=== PATIENT | male | born 1980 | race American Indian/Alaskan Native ===

== ENCOUNTER 2017-01-02 12:18 | Inpatient (IN) | payer OTHER ==
[2017-01-02 15:06] LABS: Basophils % (Auto) 0.2 % (0.0-1.8); Eosinophils % (Auto) 0.3 % (0.0-4.3); Hemoglobin 14.1 gm/dl (11.8-15.2); Mean Corpuscular HGB Conc 34 % (32-34); Mean Corpuscular Hemoglobin 33 pg (28-32); Mean Corpuscular Volume 98 fl (84-94); Platelet Count 105 K/mm3 (140-440); Red Blood Count 4.31 M/mm3 (3.65-5.03); Red Cell Distribution Width 14.2 % (13.2-15.2); White Blood Count 8.7 K/mm3 (4.5-11.0)
[2017-01-02 15:12] LABS: Alanine Aminotransferase 42 units/L (7-56); Albumin 4.7 g/dL (3.9-5); Albumin/Globulin Ratio 1.1 %; Alkaline Phosphatase 91 units/L (35-129); Anion Gap 27 mmol/L; BUN/Creatinine Ratio 18.57; Blood Urea Nitrogen 13 mg/dL (9-20); Calcium 9.9 mg/dL (8.4-10.2); Carbon Dioxide 24 mmol/L (22-30); Chloride 87.8 mmol/L (98-107); Glucose 101 mg/dL (75-100); Lipase 176 units/L (13-60); Potassium 4.4 mmol/L (3.6-5.0); Sodium 134 mmol/L (137-145); Total Protein 8.8 g/dL (6.3-8.2)
--- NOTE | 2017-01-02 15:39 | Emergency Department Report ---
Entered by ARIELLA PAREDES, acting as scribe for ASHLEY FALK PA. Chief Complaint: Abdominal Pain Stated Complaint: ABDOMINAL PAIN Time Seen by Provider: 01/02/17 14:15 - HPI History of Present Illness: 36 y/o male with PMHx of pancreatitis and EtOH abuse, presents to the ED c/o diffuse abdominal pain beginning three days ago. Associated symptoms of nausea, vomiting, and decreased appetite, but he denies dysuria, diarrhea, and constipation. Patient has had approximately 6 episodes of vomiting since onset. Patient requests detox from EtOH, states that he consumed EtOH (liquor and beer ) prior to the onset of the symptoms. No other complaints. - ROS Review of Systems: ABD: positive for abdominal pain, nausea, constipation, decreased appetite, and vomiting. Negative for diarrhea. : denies dysuria All other systems reviewed and negative. - Exam Vital Signs: Vital Signs 01/02/17 12:27 Temperature 98.5 F Pulse Rate 105 H Respiratory 18 Rate Blood Pressure 141/100 O2 Sat by Pulse 99 Oximetry Physical Exam: Constitutional: Non toxic appearing, NAD. Cardiovascular: Normal rate and rhythm with normal S1/S2 sounds. Respiratory: No respiratory distress. Lung sounds clear to auscultation bilaterally. Abdomen: Abdomen is non-distended, soft with no tenderness to palpation in all quadrants. Hyperactive bowel sounds noted. MSE screening note: Focused history and physical exam performed. Due to findings the following was ordered: ED Medical Decision Making - Medical Decision Making Alert and oriented x3. Labs ordered. No acute distress, patient is stable. ED Disposition for MSE Condition: Stable Referrals: PRIMARY CARE,MD [Primary Care Provider] - 3-5 Days This documentation as recorded by the scribe,ARIELLA PAREDES,accurately reflects the service I personally performed and the decisions made by DEYA elias OYINLOLA A, PA.
[2017-01-03] MEDS ORDERED: ZOFRAN IV ONE (00:05)
[2017-01-03] MEDS ORDERED: NACL 0.9% 1000 ML 2,000 ML IV ONE (00:05)
[2017-01-03] MEDS ORDERED: MORPHINE IV ONE (00:05)
[2017-01-03] MEDS ORDERED: VALIUM IV ONE (00:05)
--- NOTE | 2017-01-03 00:06 | Emergency Department Report ---
ED General Adult HPI - General Chief complaint: Abdominal Pain Stated complaint: ABDOMINAL PAIN Time Seen by Provider: 01/02/17 14:27 Source: patient, RN notes reviewed Mode of arrival: Ambulatory Limitations: No Limitations - History of Present Illness Initial comments: This is a 36-year-old male. He is previously unknown to me. He has a past medical history of alcohol abuse, consumes daily, and pancreatitis. The patient presents to the ER complaint diffuse abdominal pain. It is "all over." It increases with palpation, and decreases with rest. Patient reports that his pain today similar to prior episodes of pancreatitis. There is no chest pain or shortness of breath. There is no hematemesis or bright red blood per rectum. There is no testicular pain. The patient denies irritative and obstructive urinary symptoms. The patient last consumed alcohol earlier on today. He is not homicidal or suicidal. He feels like he is withdrawing. -: Gradual Location: abdomen Quality: aching Consistency: intermittent Improves with: rest Worsens with: movement Associated Symptoms: loss of appetite, malaise, nausea/vomiting. denies: confusion, chest pain - Related Data Home Medications Medication Instructions Recorded Confirmed Last Taken Unobtainable 01/03/17 01/03/17 Unknown Allergies Allergy/AdvReac Type Severity Reaction Status Date / Time No Known Allergies Allergy Unverified 01/02/17 12:31 ED Review of Systems ROS: Stated complaint: ABDOMINAL PAIN Other details as noted in HPI Constitutional: malaise Eyes: denies: vision change ENT: denies: hearing loss Respiratory: denies: cough Cardiovascular: denies: chest pain Gastrointestinal: abdominal pain Genitourinary: denies: testicular pain Neurological: denies: headache Psychiatric: anxiety. denies: homicidal thoughts, suicidal thoughts ED Past Medical Hx - Past Medical History Previous Medical History?: Yes Additional medical history: ETOH abuse, pancreatitis - Surgical History Past Surgical History?: No - Social History Smoking Status: Current Every Day Smoker Substance Use Type: Alcohol - Medications Home Medications: Home Medications Medication Instructions Recorded Confirmed Last Taken Type Unobtainable 01/03/17 01/03/17 Unknown History ED Physical Exam - General Limitations: No Limitations General appearance: alert, in no apparent distress - Head Head exam: Present: atraumatic, normocephalic - Eye Eye exam: Present: normal appearance, EOMI. Absent: nystagmus - ENT ENT exam: Present: normal exam, normal orophraynx, mucous membranes moist, normal external ear exam - Neck Neck exam: Present: normal inspection, full ROM. Absent: tenderness, meningismus - Respiratory Respiratory exam: Present: normal lung sounds bilaterally. Absent: respiratory distress, wheezes, rales, rhonchi, stridor, chest wall tenderness - Cardiovascular Cardiovascular Exam: Present: normal rhythm, tachycardia, normal heart sounds. Absent: systolic murmur, diastolic murmur, rubs, gallop - GI/Abdominal GI/Abdominal exam: Present: soft, tenderness, normal bowel sounds. Absent: distended, guarding, rebound, rigid, pulsatile mass - Rectal Rectal exam: Present: deferred - Extremities Exam Extremities exam: Present: normal inspection, full ROM, normal capillary refill. Absent: tenderness, pedal edema, joint swelling, calf tenderness - Back Exam Back exam: Present: normal inspection, full ROM. Absent: tenderness, CVA tenderness (R), CVA tenderness (L), muscle spasm, paraspinal tenderness, vertebral tenderness - Neurological Exam Neurological exam: Present: alert, oriented X3, other (Extraocular movements intact. Tongue midline. No facial droop. Facial sensation intact to light touch in the V1, V2, V3 distribution bilaterally. 5 and 5 strength in 4 extremities.. Sensation is intact to light touch in 4 extremities.). Absent: motor sensory deficit - Psychiatric Psychiatric exam: Present: normal affect, normal mood. Absent: homicidal ideation, suicidal ideation - Skin Skin exam: Present: warm, dry, intact, normal color. Absent: rash ED Course Vital Signs 01/02/17 01/02/17 01/02/17 12:27 23:43 23:44 Temperature 98.5 F Pulse Rate 105 H Respiratory 18 Rate Blood Pressure 141/100 O2 Sat by Pulse 99 100 99 Oximetry 01/02/17 01/02/17 01/02/17 23:45 23:46 23:48 Temperature Pulse Rate Respiratory Rate Blood Pressure 57/18 57/18 57/18 O2 Sat by Pulse 99 99 99 Oximetry 01/02/17 01/02/17 01/02/17 23:50 23:52 23:54 Temperature Pulse Rate Respiratory 18 Rate Blood Pressure 57/18 57/18 57/18 O2 Sat by Pulse 98 99 98 Oximetry 01/02/17 01/02/17 01/03/17 23:56 23:58 00:00 Temperature Pulse Rate Respiratory Rate Blood Pressure 57/18 57/18 160/121 O2 Sat by Pulse 100 99 98 Oximetry 01/03/17 01/03/17 01/03/17 00:02 00:04 00:06 Temperature Pulse Rate Respiratory Rate Blood Pressure 160/121 160/121 160/121 O2 Sat by Pulse 98 99 99 Oximetry 01/03/17 01/03/17 01/03/17 00:08 00:10 00:12 Temperature Pulse Rate Respiratory Rate Blood Pressure 160/121 160/121 160/121 O2 Sat by Pulse 99 99 99 Oximetry 01/03/17 01/03/17 01/03/17 00:14 00:16 00:18 Temperature Pulse Rate Respiratory Rate Blood Pressure 160/121 160/121 160/121 O2 Sat by Pulse 99 99 98 Oximetry 01/03/17 01/03/17 01/03/17 00:20 00:47 02:12 Temperature Pulse Rate Respiratory 18 Rate Blood Pressure 160/121 160/112 O2 Sat by Pulse 99 98 Oximetry 01/03/17 01/03/17 01/03/17 02:14 02:16 02:18 Temperature Pulse Rate Respiratory Rate Blood Pressure 160/112 160/112 160/112 O2 Sat by Pulse 98 98 98 Oximetry 01/03/17 01/03/17 01/03/17 02:20 02:22 02:24 Temperature Pulse Rate Respiratory Rate Blood Pressure 160/112 160/112 160/112 O2 Sat by Pulse 98 97 99 Oximetry 01/03/17 01/03/17 01/03/17 02:26 02:28 02:30 Temperature Pulse Rate Respiratory Rate Blood Pressure 160/112 160/112 160/112 O2 Sat by Pulse 97 97 98 Oximetry 01/03/17 01/03/17 01/03/17 02:32 02:34 02:36 Temperature Pulse Rate Respiratory Rate Blood Pressure 160/112 160/112 160/112 O2 Sat by Pulse 99 98 96 Oximetry 01/03/17 01/03/17 01/03/17 02:38 02:40 02:42 Temperature Pulse Rate Respiratory Rate Blood Pressure 160/112 160/112 160/112 O2 Sat by Pulse 98 97 98 Oximetry 01/03/17 01/03/17 01/03/17 02:44 02:46 02:47 Temperature Pulse Rate Respiratory Rate Blood Pressure 160/112 160/112 160/112 O2 Sat by Pulse 98 98 99 Oximetry 01/03/17 01/03/17 01/03/17 02:48 03:09 03:10 Temperature Pulse Rate Respiratory Rate Blood Pressure 160/112 160/112 160/112 O2 Sat by Pulse 97 97 97 Oximetry 01/03/17 01/03/17 01/03/17 03:12 03:14 03:16 Temperature Pulse Rate Respiratory Rate Blood Pressure 160/112 160/112 160/112 O2 Sat by Pulse 98 97 96 Oximetry 01/03/17 01/03/17 01/03/17 03:18 03:20 03:22 Temperature Pulse Rate Respiratory Rate Blood Pressure 160/112 160/112 160/112 O2 Sat by Pulse 96 97 97 Oximetry 01/03/17 01/03/17 01/03/17 03:24 03:26 03:28 Temperature Pulse Rate Respiratory Rate Blood Pressure 160/112 160/112 160/112 O2 Sat by Pulse 97 97 98 Oximetry 01/03/17 01/03/17 01/03/17 03:30 03:32 03:34 Temperature Pulse Rate Respiratory Rate Blood Pressure 160/112 160/112 160/112 O2 Sat by Pulse 96 96 97 Oximetry 01/03/17 01/03/17 01/03/17 03:36 03:38 03:40 Temperature Pulse Rate Respiratory Rate Blood Pressure 160/112 160/112 160/112 O2 Sat by Pulse 97 97 97 Oximetry 01/03/17 01/03/17 01/03/17 03:42 03:44 03:46 Temperature Pulse Rate Respiratory Rate Blood Pressure 160/112 160/112 160/112 O2 Sat by Pulse 96 97 98 Oximetry 01/03/17 01/03/17 01/03/17 03:48 03:50 03:52 Temperature Pulse Rate Respiratory Rate Blood Pressure 160/112 160/112 160/112 O2 Sat by Pulse 97 97 97 Oximetry 01/03/17 01/03/17 01/03/17 03:54 03:56 03:58 Temperature Pulse Rate Respiratory Rate Blood Pressure 160/112 160/112 160/112 O2 Sat by Pulse 97 97 98 Oximetry 01/03/17 01/03/17 01/03/17 04:00 04:02 04:03 Temperature Pulse Rate Respiratory Rate Blood Pressure 160/112 160/112 166/95 O2 Sat by Pulse 94 95 99 Oximetry 01/03/17 01/03/17 04:04 04:13 Temperature 98.7 F Pulse Rate 84 Respiratory 16 Rate Blood Pressure 166/95 O2 Sat by Pulse 98 Oximetry - Reevaluation(s) Reevaluation #1: 01/03/17 01:04 Differential diagnosis: Alcohol dependence, alcohol intoxication, GERD, gastritis, pancreatitis, perforated viscus, alcohol withdrawal Assessment and plan: 36-year-old male with diffuse abdominal pain, tongue fasciculations, bilateral upper extremity tremulousness, elevated lipase level, most likely consistent with pancreatitis. He is not homicidal or suicidal, and does not require 1013 at this time. He will be given pain medication, nausea medication, and started on a CIWA protocol. CT scan of the abdomen and pelvis is pending. Reevaluation #2: 01/03/17 03:13 CT scan suggests ileus. Patient raw stock drier tender. He will be admitted for alcohol withdrawal, ileus versus early pancreatitis. The Hospital physician, Dr. Marcial, accepts the patient ED Medical Decision Making - Lab Data Result diagrams: 01/02/17 14:37 01/02/17 14:37 Critical care attestation.: If time is entered above; I have spent that time in minutes in the direct care of this critically ill patient, excluding procedure time. ED Disposition Clinical Impression: Alcohol withdrawal, Pancreatitis Disposition: [id number] OP ADMIT IP TO THIS HOSP Is pt being admited?: Yes Condition: Good
[2017-01-03] MEDS ORDERED: NACL ONE (00:43)
--- NOTE | 2017-01-03 01:44 | Cat Scan Report ---
FINAL REPORT PROCEDURE: CT ABDOMEN PELVIS W CON TECHNIQUE: Computerized axial tomography of the abdomen and pelvis was performed after the IV injection of iodinated nonionic contrast. HISTORY: pancreatitis MID ABD PAIN COMPARISON: No prior studies are available for comparison. FINDINGS: Visualized lower thorax: No significant abnormality. Liver: The liver size is normal. The liver is fatty infiltrated.. Spleen: Normal size and attenuation. Gallbladder and biliary system: Normal. Pancreas: Normal. Adrenals: Normal. Kidneys: Both kidneys have normal size. No hydronephrosis. No renal stones or masses.. GI tract: There is some thickening the wall of the stomach involving the pylorus. Gastritis is suspected. Further evaluation with endoscopy may be appropriate. There are multiple loops of slightly dilated fluid and gas-filled small bowel, an ileus is suspected. No obstruction is seen. The cecum, appendix region and colon are normal.. Lymph nodes and mesentery: Normal. Vasculature: Normal. Bladder: Normal. Reproductive organs: Normal. Peritoneum: No free fluid. Musculoskeletal structures: No significant abnormality. Other: None. IMPRESSION: Moderate gastric wall thickening of the pylorus of the stomach, gastritis is possible. Further differentiation with endoscopy may be appropriate. Mild small bowel ileus is suspected as described. No obstruction is seen. Fatty infiltration of the liver.
--- NOTE | 2017-01-03 03:10 | Admit Criteria Form ---
Admission Criteria Documentation: ABDOMINAL PAIN Clinical Indications for Admission to Inpatient Care (Place 'X' for any and all applicable criteria): Admission is indicated for ANY ONE of the following(1)(2)(3)(4)(5): [ X]I. Inpatient admission required rather than observation care (Also use Abdominal Pain: Observation Care, as appropriate) because of ANY ONE of the following: [ ]a) Severe pain requiring acute inpatient management [ X]b) Identification of etiology/finding that requires inpatient care (eg, aortic dissection, free air) [ ]c) Absent bowel sounds with complete ileus(6) [ ]d) Suspected toxic megacolon [ ]e) Severe electrolyte abnormalities requiring inpatient care [ ]f) High fever or infection requiring inpatient admission as indicated by ANY ONE of following(7)(8): [ ] i) Appropriate outpatient or observational care antimicrobial treatment unavailable, not effective, or not feasible [ ] ii) Documented bacteremia [ ] iii) Temperature > 104.9 degrees F (oral) [ ] iv) T >103.1 F (oral) or < 96.8 F(rectal) that does not respond to all emergency treatment measures [ ]g) Signs of intestinal obstruction [B] [ ]h) Hemodynamic instability [ ]i) IV fluid to replace significant ongoing losses (greater than 3 L/m2 per day) (12)(13) [ ]j) Percutaneous or open drainage (eg, abscess, biliary tract ) procedures [ ]k) Parenteral nutrition regimen that must be implemented on inpatient basis [ ]l) Other condition,treatment or monitoring requiring inpatient admission. [ ]II. Peritoneal signs present [ ]III. Surgery needed that cannot be performed on an ambulatory basis. [ ]IV. Evaluation requires patient to not eat or drink for extended period ( eg, more than 24 hours). [ ]V. Contraindications and/or Inappropriate clinical situations for Observational Care in patients with abdominal pain, when ANY ONE of the following is required: [ ]a) Thorough evaluation is required to prevent catastrophic events due to delays in diagnosing (e.g.Mesenteric ischemia) 1,3 [ ]b) Patient with severe pathology or with chronic symptoms unlikely to improve in the ED stay (3) [ ]. General contraindications and/or Inappropriate clinical situations for Observational Care in patients with abdominal pain, when ANY ONE of the following is required: [ ]a) Prediction of prolongation of LOS based on ANY ONE of the following may be considered as a contraindication for observational care 2, 3, 4, 5, 6, 7, 8, 9, 10, 11 [ ]i) Age > 65 yrs. [ ]ii) Patient arriving by ambulance [ ]iii) Patient with high acuity [ ]iv) Patient requiring vital sign monitoring [ ]v) Patient on IV medication [ ]b) Systolic blood pressures 180mmHg 3,12 [ ]c) Patient with altered mental status including delirium and other alteration of consciousness, (3) [ ]d) Patient whose discharge disposition will be to a long-term home or rehabilitation home should not be managed in Emergency Department Observation Unit. CMS rule requires 3 days hospital stay before such placement.3,13 [ ]e) Patient with failure to thrive due to broad array of etiologies 3,16,17 [ ]f) Inability to ambulate 3,14 Extended stay beyond goal length of stay may be needed for(2)(3): [ ]a) Persistent abdominal pain with suspected intra-abdominal process [ ]b) Diagnosed condition requiring continued stay (e.g., pancreatitis, complicated diverticulitis) [ ]c) Surgery (e.g., colectomy) The original [employer] content created by [employer] has been revised. The portions of the content which have been revised are identified through the use of italic text or in bold, and [facility] has neither reviewed nor approved the modified material.All other unmodified content is copyright [employer]. Please see references footnoted in the original [employer] edition 2016 Admission Criteria Met: Yes
[2017-01-03] MEDS ORDERED: ZOFRAN IV PRN ×2 (03:33→07:35)
[2017-01-03] MEDS ORDERED: DULCOLAX PR PRN (03:33)
[2017-01-03] MEDS ORDERED: MILK OF MAGNESIA PO PRN (03:33)
[2017-01-03] MEDS ORDERED: TYLENOL PO PRN (03:33)
--- NOTE | 2017-01-03 03:42 | History and Physical Report ---
History of Present Illness Date of examination: 01/03/17 History of present illness: 36-year-old man history of hypertension, alcohol indued pancreatitis comes emergency room with complaints of epigastric pain that started today. He describes the pain as abdominal pain, intensity 8/10, no radiation, relieved with IV morphine given in the emergency room. He is a heavy drinker, last drink was yesterday morning. Patient denies chest pain, palpitation, shortness of breath, cough, hematochezia, dysuria, frequency, focal weakness, dysarthria, fever chills, polydipsia polyuria, hot or cold intolerance, easy bruisability, or rash or bleeding from mucosal membrane, rhinorrhea, epistaxis, earache, tinnitus, blurry vision, eye discharge, anxiety, depression. Other review of systems negative PAST SURGICAL HISTORY: None SOCIAL HISTORY: Smoked one and a half packs a day, heavy drinker, no drugs FAMILY HISTORY: Hypertension Medications and Allergies Allergies Allergy/AdvReac Type Severity Reaction Status Date / Time No Known Allergies Allergy Unverified 01/02/17 12:31 Home Medications Medication Instructions Recorded Confirmed Last Taken Type Unobtainable 01/03/17 01/03/17 Unknown History Active Meds: Active Medications Acetaminophen (Tylenol) 650 mg PO Q4H PRN PRN Reason: Pain MILD(1-3)/Fever >100.5/PERAZA Bisacodyl (Dulcolax) 10 mg TN QDAY PRN PRN Reason: Constipation unrelieved by MOM Enoxaparin Sodium (Lovenox) 40 mg SUB-Q QDAY [facility] Sodium Chloride (Nacl 0.9% 1000 Ml) 1,000 mls @ 100 mls/hr IV DIRECT NIKA Lorazepam (Ativan) 2 mg IV Q1HR PRN PRN Reason: CIWA-Ar 8-15 Magnesium Hydroxide (Milk Of Magnesia) 30 ml PO Q4H PRN PRN Reason: Constipation Morphine Sulfate (Morphine) 2 mg IV Q4H PRN PRN Reason: Pain, Moderate (4-6) Ondansetron HCl (Zofran) 4 mg IV Q8H PRN PRN Reason: N/V unrelieved by Reglan Exam - Physical Exam Narrative exam: Gen. appearance: Patient lying in bed, no apparent distress HEENT: Normocephalic, atraumatic, pupils equally round and reactive to light, extraocular movement intact, and no sclericterus,. No JVD or thyromegaly or nodule,neck supple, no carotid bruit ,mucous membranes moist, no exudate or erythema Heart: S1, S2, regular rate and rhythm Lungs: Clear to auscultation bilaterally, breathing comfortable Abdomen: Positive bowel sounds, tender in epigastric area, nondistended, no organomegaly Extremity: No edema, cyanosis, clubbing, tremors Skin: No rash, nodules, warm, dry Neuro: Oriented 3, cranial nerves II-12 intact, speech is fluent, motor and sensory intact - Constitutional Vitals: Temp Pulse Resp BP Pulse Ox 98.5 F 105 H 18 160/121 99 01/02/17 12:27 01/02/17 12:27 01/03/17 00:47 01/03/17 00:20 01/03/17 00:20 Results - Labs CBC & Chem 7: 01/04/17 05:59 01/04/17 05:59 Labs: Abnormal lab results 01/02/17 01/02/17 Range/Units 14:37 14:37 MCV 98 H (84-94) fl MCH 33 H (28-32) pg Plt Count 105 L (140-440) K/mm3 [place] % (Auto) 9.5 H (0.0-7.3) % Seg Neutrophils % 73.1 H (40.0-70.0) % Sodium 134 L (137-145) mmol/L Chloride 87.8 L (98-107) mmol/L Creatinine 0.7 L (0.8-1.5) mg/dL Glucose 101 H (75-100) mg/dL AST 41 H (5-40) units/L Total Protein 8.8 H (6.3-8.2) g/dL Lipase 176 H (13-60) units/L - Imaging and Cardiology CT scan - abdomen: report reviewed CT scan - pelvis: report reviewed Assessment and Plan pancreatitis, acute on chronic, Alcohol induced Alcohol withdrawal Thrombocytopenia Hypertension Admits medicine Start IV fluids, bowel rest, IV morphine Start CIWA protocol with IV Ativan DVT prophylaxis with SCD
[2017-01-03] MEDS ORDERED: NACL 0.9% 1000 ML 1,000 ML IV SCH (04:00)
[2017-01-03] MEDS: MORPHINE IV PRN ×2 (05:21→10:07)
[2017-01-03] MEDS ORDERED: NORMODYNE IV PRN (07:34)
--- NOTE | 2017-01-03 07:38 | Event Note ---
Date: 01/03/[address] Marcial Problem list -Acute pancreatitis -CTAP w/ shows gastritis, sb ileus, fatty liver; npo -Accelerated hypertension: changed nss to half normal, ordered labetalolol iv prn -thrombocytopenia, most likely etoh related -mild hyponatremia, dehydration most likely -dvt prophylaxis: scd only due to fatty liver
[2017-01-03] MEDS: LOPRESSOR PO SCH ×3 (07:55→22:27)
[2017-01-03] MEDS: NACL 0.45% 1000 ML 1,000 ML IV SCH ×2 (08:09→22:32)
[2017-01-03] MEDS: APRESOLINE IV PRN ×2 (08:15→18:52)
[2017-01-03] MEDS ORDERED: LOVENOX SUB-Q SCH (10:00)
[2017-01-03] MEDS: ATIVAN IV PRN ×5 (11:20→22:28)
[2017-01-03] MEDS ORDERED: ATIVAN IV PRN ×2 (12:18)
[2017-01-03] MEDS ORDERED: HALDOL IM PRN (12:18)
[2017-01-04] MEDS: ATIVAN IV PRN ×2 (04:48→15:01)
[2017-01-04 06:40] LABS: Basophils % (Auto) 0.4 % (0.0-1.8); Hematocrit 42.6 % (35.5-45.6); Hemoglobin 14.1 gm/dl (11.8-15.2); Mean Corpuscular HGB Conc 33 % (32-34); Mean Corpuscular Hemoglobin 32 pg (28-32); Mean Corpuscular Volume 96 fl (84-94); Red Blood Count 4.43 M/mm3 (3.65-5.03); Red Cell Distribution Width 13.9 % (13.2-15.2); White Blood Count 6.2 K/mm3 (4.5-11.0)
[2017-01-04 06:47] LABS: Platelet Count 84 K/mm3 (140-440)
[2017-01-04 06:58] LABS: Anion Gap 27 mmol/L; BUN/Creatinine Ratio 17.14; Blood Urea Nitrogen 12 mg/dL (9-20); Calcium 9.3 mg/dL (8.4-10.2); Carbon Dioxide 20 mmol/L (22-30); Glucose 82 mg/dL (75-100); Potassium 3.9 mmol/L (3.6-5.0); Sodium 132 mmol/L (137-145)
--- NOTE | 2017-01-04 10:33 | Progress Note ---
Assessment and Plan Assessment and plan: Patient is a 36-year-old man with history of hypertension, tobacco dependency and alcohol abuse who presents with epigastric pains and admitted for acute pancreatitis -Acute ETOH related pancreatitis: abd pain resolved, start diet, iv narcotics -Alcoholic DTs: ciwa protocol, restraints renewed -Acute toxic metabolic encephalopathy due to alcohol -CTAP w/ shows gastritis, sb ileus, fatty liver: good bowel sounds, start diet -Accelerated hypertension: changed nss to half normal, ordered labetalolol iv prn -thrombocytopenia, most likely etoh related -mild hyponatremia, dehydration most likely -dvt prophylaxis: scd only due to fatty liver thrombocytopenia History Interval history: Patient seen and examined. Follow up on abdominal pain. Overnight eventful. Patient went into DTs with acute confusion and delirium. IM Haldol was given which improved his symptoms and he denies abd pains and asking for food. No cp, sob, n/v or severe headaches. Imaging, old records, testing, labs, nursing notes reviewed. Hospitalist Physical - Physical exam Narrative exam: GEN: WDWN, NAD, AWAKE, ALERT, ORIENTATED x 3 HEENT: NCAT, PERRL, EOMI, OP CLEAR NECK: SUPPLE, NO THYROMEGALY, NO JVD, NO LAD CVS: RRR, NORMAL S1S2 LUNGS/CHEST: CTA B, NORMAL CHEST EXPANSION B, GOOD AIR ENTRY B ABD: SOFT, NTND, GBS, NO REBOUND OR GUARDING EXT/SKIN: NO SIGNIFICANT EDEMA OR RASH MSK: FROM X 4 EXTREMITIES NEURO: CN 2-12 GROSSLY INTACT, NO FOCAL DEFICITS except fine intention tremor PSY: Anxious - Constitutional Vitals: Temp Pulse Resp BP Pulse Ox 99 F 94 H 18 141/111 999 H 01/04/17 08:50 01/04/17 08:50 01/04/17 08:50 01/04/17 08:50 01/04/17 08:50 Results - Labs CBC & Chem 7: 01/04/17 05:59 01/04/17 05:59 Labs: Laboratory Last Values WBC 6.2 K/mm3 (4.5-11.0) 01/04/17 05:59 RBC 4.43 M/mm3 (3.65-5.03) 01/04/17 05:59 Hgb 14.1 gm/dl (11.8-15.2) 01/04/17 05:59 Hct 42.6 % (35.5-45.6) 01/04/17 05:59 MCV 96 fl (84-94) H 01/04/17 05:59 MCH 32 pg (28-32) 01/04/17 05:59 MCHC 33 % (32-34) 01/04/17 05:59 RDW 13.9 % (13.2-15.2) 01/04/17 05:59 Plt Count 84 K/mm3 (140-440) L 01/04/17 05:59 Lymph % (Auto) 20.6 % (13.4-35.0) 01/04/17 05:59 [place] % (Auto) 11.5 % (0.0-7.3) H 01/04/17 05:59 Eos % (Auto) 1.0 % (0.0-4.3) 01/04/17 05:59 Baso % (Auto) 0.4 % (0.0-1.8) 01/04/17 05:59 Lymph # 1.3 K/mm3 (1.2-5.4) 01/04/17 05:59 [place] # 0.7 K/mm3 (0.0-0.8) 01/04/17 05:59 Eos # 0.1 K/mm3 (0.0-0.4) 01/04/17 05:59 Baso # 0.0 K/mm3 (0.0-0.1) 01/04/17 05:59 Seg Neutrophils % 66.5 % (40.0-70.0) 01/04/17 05:59 Seg Neutrophils # 4.1 K/mm3 (1.8-7.7) 01/04/17 05:59 Sodium 132 mmol/L (137-145) L 01/04/17 05:59 Potassium 3.9 mmol/L (3.6-5.0) 01/04/17 05:59 Chloride 89.0 mmol/L (98-107) L 01/04/17 05:59 Carbon Dioxide 20 mmol/L (22-30) L 01/04/17 05:59 Anion Gap 27 mmol/L 01/04/17 05:59 BUN 12 mg/dL (9-20) 01/04/17 05:59 Creatinine 0.7 mg/dL (0.8-1.5) L 01/04/17 05:59 Estimated GFR > 60 ml/min 01/04/17 05:59 BUN/Creatinine Ratio 17.14 % 01/04/17 05:59 Glucose 82 mg/dL (75-100) 01/04/17 05:59 Calcium 9.3 mg/dL (8.4-10.2) 01/04/17 05:59 Magnesium 1.80 mg/dL (1.7-2.3) 01/03/17 00:47 Total Bilirubin 0.50 mg/dL (0.1-1.2) 01/02/17 14:37 AST 41 units/L (5-40) H 01/02/17 14:37 ALT 42 units/L (7-56) 01/02/17 14:37 Alkaline Phosphatase 91 units/L (35-129) 01/02/17 14:37 Total Protein 8.8 g/dL (6.3-8.2) H 01/02/17 14:37 Albumin 4.7 g/dL (3.9-5) 01/02/17 14:37 Albumin/Globulin Ratio 1.1 % 01/02/17 14:37 Lipase 176 units/L (13-60) H 01/02/17 14:37 Plasma/Serum Alcohol < 0.01 gm% (0-0.07) 01/03/17 00:47
[2017-01-04] MEDS: LOPRESSOR PO SCH ×2 (10:56→23:26)
--- NOTE | 2017-01-04 17:46 | Consultation ---
History of Present Illness - Reason for Consult Consult date: 01/04/17 Reason for consult: Mental Health Evaluation Requesting physician: ALEKSEY CORDOBA - Chief Complaint Chief complaint: "I want to detox" - History of Present Psychiatric Illness 36 y/o male with PMHx of pancreatitis and EtOH abuse, presents to the ED c/o diffuse abdominal pain beginning three days ago. Today patient is calm and cooperative during the assessment. He stated that he need to stop drinking so he can hopefully get his life together. 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 He stated that he has been in multiple rehab programs, but always relapse. He stated that once he is discharge he plan on going back to a local rehab facility for detox. He stated feeling sad, experiencing low self esteem, and hopeless for months. He denies SI/HI's and AVH 's. He stated that he self medicate with alcohol to get sleep. He also stated that his appetite has been poor over the last couple months. He denies recreational drug use. He stated that he drink at least a 6 pack of beer a day over the past 10 years. Medications and Allergies Allergies Allergy/AdvReac Type Severity Reaction Status Date / Time No Known Allergies Allergy Unverified 01/02/17 12:31 Home Medications Medication Instructions Recorded Confirmed Last Taken Type Unobtainable 01/03/17 01/03/17 Unknown History Active Meds: Active Medications Acetaminophen (Tylenol) 650 mg PO Q4H PRN PRN Reason: Pain MILD(1-3)/Fever >100.5/PERAZA Bisacodyl (Dulcolax) 10 mg FL QDAY PRN PRN Reason: Constipation unrelieved by MOM Haloperidol Lactate (Haldol) 10 mg IM Q1H PRN PRN Reason: CIWA-Ar >15 and unrespon BZD's Last Admin: 01/03/17 13:23 Dose: 10 mg Hydralazine HCl (Apresoline) 5 mg IV Q6H PRN PRN Reason: Hypertension Last Admin: 01/03/17 18:52 Dose: 5 mg Sodium Chloride (Nacl 0.45% 1000 Ml) 1,000 mls @ 100 mls/hr IV DIRECT NIKA Last Admin: 01/03/17 22:32 Dose: 100 mls/hr Labetalol HCl (Normodyne) 10 mg IV ONCE PRN PRN Reason: Blood Pressure Lorazepam (Ativan) 2 mg IV Q1H PRN PRN Reason: CIWA-Ar 8-15 Last Admin: 01/04/17 15:01 Dose: 2 mg Lorazepam (Ativan) 2 mg IV Q1H PRN PRN Reason: CIWA-Ar 16-25 Magnesium Hydroxide (Milk Of Magnesia) 30 ml PO Q4H PRN PRN Reason: Constipation Metoprolol Tartrate (Lopressor) 25 mg PO BID NIKA Last Admin: 01/04/17 10:56 Dose: 25 mg Morphine Sulfate (Morphine) 2 mg IV Q4H PRN PRN Reason: Pain, Moderate (4-6) Last Admin: 01/03/17 10:07 Dose: 2 mg Ondansetron HCl (Zofran) 4 mg IV Q4H PRN PRN Reason: Nausea And Vomiting Past psychiatric history - Past Medical History Past Medical History: hypertension, other (pancreatitis) Past Surgical History: No surgical history - past Psychiatric treatment and history psychiatric treatment history: Multiple alcohol rehab services. Both parents has an hx of alcohol abuse. - Social History Social history: other (Homeless, 11th grade education) Mental Status Exam - Vital signs Last Vital Signs Temp 99 F 01/04/17 08:50 Pulse 94 H 01/04/17 08:50 Resp 18 01/04/17 08:50 BP 148/100 01/04/17 10:56 Pulse Ox 999 H 01/04/17 08:50 - Exam Narrative exam: ROS: (+) depression MSE: Appearance: cooperative, calm Behavior: good eye contact Speech: regular rate and tone Mood: "okay" Affect: congruent to mood Thought Process: linear Thought Content: denies SI/HI's and AVH's Motor Activity: lying in bed Cognition: a/ox 3 Insight: fair Judgment: limited Results Result Diagrams: 01/04/17 05:59 01/04/17 05:59 Abnormal lab results 01/04/17 01/04/17 Range/Units 05:59 05:59 MCV 96 H (84-94) fl Plt Count 84 L (140-440) K/mm3 [place] % (Auto) 11.5 H (0.0-7.3) % Sodium 132 L (137-145) mmol/L Chloride 89.0 L (98-107) mmol/L Carbon Dioxide 20 L (22-30) mmol/L Creatinine 0.7 L (0.8-1.5) mg/dL All other labs normal. Assessment and Plan Assessment and plan: Impression: MDD moderate to severe type, Alcohol Use DO. Today patient is calm and cooperative during the assessment. He stated that he need to stop drinking so he can hopefully get his life together. 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 He stated that he has been in multiple rehab programs, but always relapse. He denies SI/HI's and AVH's. No acute withdrawals noted. Recommendation/Plan: Start Remeron 15 mg PO HS for depression. Continue CIWA, D/ C when indicated. Patient will be given outpatient rehab services ([facility]). Will continue to follow patient until discharged. Discussed possible suicidality and medication induced nestor reference antidepressants.
[2017-01-04] MEDS: NACL 0.45% 1000 ML 1,000 ML IV SCH (18:39)
[2017-01-04] MEDS: APRESOLINE IV PRN (22:14)
[2017-01-04] MEDS: MORPHINE IV PRN (22:17)
[2017-01-04] MEDS: REMERON PO SCH (23:26)
[2017-01-05 07:46] LABS: Hematocrit 42.6 % (35.5-45.6); Hemoglobin 14.8 gm/dl (11.8-15.2); Mean Corpuscular HGB Conc 35 % (32-34); Mean Corpuscular Hemoglobin 33 pg (28-32); Mean Corpuscular Volume 94 fl (84-94); Red Blood Count 4.52 M/mm3 (3.65-5.03); Red Cell Distribution Width 13.2 % (13.2-15.2); White Blood Count 5.7 K/mm3 (4.5-11.0)
[2017-01-05 08:06] LABS: Anion Gap 20 mmol/L; Blood Urea Nitrogen 7 mg/dL (9-20); Calcium 9.3 mg/dL (8.4-10.2); Carbon Dioxide 24 mmol/L (22-30); Chloride 93.8 mmol/L (98-107); Glucose 138 mg/dL (75-100); Sodium 134 mmol/L (137-145)
[2017-01-05 08:23] LABS: Platelet Count 94 K/mm3 (140-440)
--- NOTE | 2017-01-05 09:52 | Progress Note ---
Assessment and Plan Assessment and plan: Patient is a 36-year-old man with history of hypertension, tobacco dependency and alcohol abuse who presents with epigastric pains and admitted for acute pancreatitis -Acute ETOH related pancreatitis: abd pain resolved, start diet, iv narcotics -Alcoholic DTs: ciwa protocol, restraints renewed -Acute toxic metabolic encephalopathy due to alcohol -CTAP w/ shows gastritis, sb ileus, fatty liver: good bowel sounds, start diet -Accelerated hypertension: changed nss to half normal, ordered labetalolol iv prn -thrombocytopenia, most likely etoh related -mild hyponatremia, dehydration most likely -dvt prophylaxis: scd only due to fatty liver thrombocytopenia out of restraints, still lethargic post Etoh WD, anticipate discharge tomorrow. History Interval history: Patient seen and examined. Follow up on abdominal pain. Overnight uneventful. Patient went into DTs with acute confusion and delirium. IM Haldol was given which improved his symptoms and he denies abd pains and asking for food. No cp, sob, n/v or severe headaches. Imaging, old records, testing, labs, nursing notes reviewed. Hospitalist Physical - Physical exam Narrative exam: GEN: WDWN, NAD, AWAKE, ALERT, ORIENTATED x 3 HEENT: NCAT, PERRL, EOMI, OP CLEAR NECK: SUPPLE, NO THYROMEGALY, NO JVD, NO LAD CVS: RRR, NORMAL S1S2 LUNGS/CHEST: CTA B, NORMAL CHEST EXPANSION B, GOOD AIR ENTRY B ABD: SOFT, NTND, GBS, NO REBOUND OR GUARDING EXT/SKIN: NO SIGNIFICANT EDEMA OR RASH MSK: FROM X 4 EXTREMITIES NEURO: CN 2-12 GROSSLY INTACT, NO FOCAL DEFICITS resolved PSY: Anxious - Constitutional Vitals: Temp Pulse Resp BP Pulse Ox 99 F 93 H 20 153/102 99 01/05/17 07:30 01/05/17 07:30 01/05/17 07:30 01/05/17 07:30 01/05/17 07:30 Results - Labs CBC & Chem 7: 01/05/17 07:23 01/05/17 07:23 Labs: Laboratory Last Values WBC 5.7 K/mm3 (4.5-11.0) 01/05/17 07:23 RBC 4.52 M/mm3 (3.65-5.03) 01/05/17 07:23 Hgb 14.8 gm/dl (11.8-15.2) 01/05/17 07:23 Hct 42.6 % (35.5-45.6) 01/05/17 07:23 MCV 94 fl (84-94) 01/05/17 07:23 MCH 33 pg (28-32) H 01/05/17 07:23 MCHC 35 % (32-34) H 01/05/17 07:23 RDW 13.2 % (13.2-15.2) 01/05/17 07:23 Plt Count 94 K/mm3 (140-440) L 01/05/17 07:23 Lymph % (Auto) 20.6 % (13.4-35.0) 01/04/17 05:59 [place] % (Auto) 11.5 % (0.0-7.3) H 01/04/17 05:59 Eos % (Auto) 1.0 % (0.0-4.3) 01/04/17 05:59 Baso % (Auto) 0.4 % (0.0-1.8) 01/04/17 05:59 Lymph # 1.3 K/mm3 (1.2-5.4) 01/04/17 05:59 [place] # 0.7 K/mm3 (0.0-0.8) 01/04/17 05:59 Eos # 0.1 K/mm3 (0.0-0.4) 01/04/17 05:59 Baso # 0.0 K/mm3 (0.0-0.1) 01/04/17 05:59 Seg Neutrophils % 66.5 % (40.0-70.0) 01/04/17 05:59 Seg Neutrophils # 4.1 K/mm3 (1.8-7.7) 01/04/17 05:59 Sodium 134 mmol/L (137-145) L 01/05/17 07:23 Potassium 4.0 mmol/L (3.6-5.0) 01/05/17 07:23 Chloride 93.8 mmol/L (98-107) L 01/05/17 07:23 Carbon Dioxide 24 mmol/L (22-30) 01/05/17 07:23 Anion Gap 20 mmol/L 01/05/17 07:23 BUN 7 mg/dL (9-20) L 01/05/17 07:23 Creatinine 0.7 mg/dL (0.8-1.5) L 01/05/17 07:23 Estimated GFR > 60 ml/min 01/05/17 07:23 BUN/Creatinine Ratio 10.00 % 01/05/17 07:23 Glucose 138 mg/dL (75-100) H 01/05/17 07:23 Calcium 9.3 mg/dL (8.4-10.2) 01/05/17 07:23 Magnesium 1.80 mg/dL (1.7-2.3) 01/05/17 07:23 Total Bilirubin 0.50 mg/dL (0.1-1.2) 01/02/17 14:37 AST 41 units/L (5-40) H 01/02/17 14:37 ALT 42 units/L (7-56) 01/02/17 14:37 Alkaline Phosphatase 91 units/L (35-129) 01/02/17 14:37 Total Protein 8.8 g/dL (6.3-8.2) H 01/02/17 14:37 Albumin 4.7 g/dL (3.9-5) 01/02/17 14:37 Albumin/Globulin Ratio 1.1 % 01/02/17 14:37 Lipase 176 units/L (13-60) H 01/02/17 14:37 Plasma/Serum Alcohol < 0.01 gm% (0-0.07) 01/03/17 00:47
[2017-01-05] MEDS: LOPRESSOR PO SCH ×2 (10:00→22:27)
[2017-01-05] MEDS: NACL 0.45% 1000 ML 1,000 ML IV SCH (12:27)
[2017-01-05] MEDS: APRESOLINE IV PRN ×2 (16:20→22:28)
[2017-01-05] MEDS: MORPHINE IV PRN ×2 (18:11→22:32)
[2017-01-05] MEDS: REMERON PO SCH (22:40)
--- NOTE | 2017-01-05 23:44 | Progress Note ---
Subjective - Reason for Consult Consult date: 01/05/17 Reason for consult: psychiatric follow up - Chief Complaint Chief complaint: "I need rehab that doesn't cost" 36 y/o male with PMHx of pancreatitis and EtOH abuse, presents to the ED c/o diffuse abdominal pain beginning three days ago. Today patient is calm and cooperative during the assessment. He maintains the desire for quitting drinking and going to rehab. He discussed needing rehab options for low or no cost. He denies SI/HI or AVH. He reports having auditory hallucinations when he is coming off alcohol and last had hallucinations yesterday. Mental Status Exam - Vital signs Last Vital Signs Temp 99.5 F 01/05/17 19:40 Pulse 101 H 01/05/17 22:28 Resp 20 01/05/17 19:40 BP 161/116 01/05/17 22:28 Pulse Ox 100 01/05/17 19:40 - Exam Narrative exam: ROS: (+) depression MSE: Appearance: cooperative, calm Behavior: good eye contact Speech: regular rate and tone Mood: "okay" Affect: congruent to mood Thought Process: linear Thought Content: denies SI/HI's and AVH's Motor Activity: lying in bed Cognition: a/ox 3 Insight: fair Judgment: limited Assessment and Plan Impression: MDD moderate to severe type, Alcohol Use DO. He denies SI/HI's and AVH's. No acute withdrawals noted. Recommendation/Plan: Continue Remeron 15 mg PO HS for depression. Continue CIWA, D/C when indicated- managed by the medical team Patient will be given outpatient rehab services ([facility]). Will continue to follow patient until discharged.
[2017-01-06] MEDS: ATIVAN IV PRN ×2 (02:16→23:32)
[2017-01-06] MEDS: MORPHINE IV PRN ×3 (02:17→21:59)
[2017-01-06] MEDS: NACL 0.45% 1000 ML 1,000 ML IV SCH ×3 (02:24→23:30)
[2017-01-06 05:30] LABS: Hematocrit 42.6 % (35.5-45.6); Hemoglobin 14.4 gm/dl (11.8-15.2); Mean Corpuscular HGB Conc 34 % (32-34); Mean Corpuscular Hemoglobin 32 pg (28-32); Mean Corpuscular Volume 96 fl (84-94); Platelet Count 102 K/mm3 (140-440); Red Blood Count 4.45 M/mm3 (3.65-5.03); Red Cell Distribution Width 13.4 % (13.2-15.2)
[2017-01-06 05:50] LABS: BUN/Creatinine Ratio 8.33; Blood Urea Nitrogen 5 mg/dL (9-20); Calcium 9.3 mg/dL (8.4-10.2); Carbon Dioxide 25 mmol/L (22-30); Glucose 148 mg/dL (75-100)
[2017-01-06 05:51] LABS: Anion Gap 20 mmol/L; Chloride 96.4 mmol/L (98-107); Potassium 3.5 mmol/L (3.6-5.0); Sodium 138 mmol/L (137-145)
[2017-01-06] MEDS ORDERED: POTASSIUM CHLORIDE PO ONE (07:02)
[2017-01-06] MEDS: LOPRESSOR PO SCH ×2 (11:02→21:56)
--- NOTE | 2017-01-06 13:08 | Progress Note ---
Assessment and Plan Assessment and plan: Patient is a 36-year-old man with history of hypertension, tobacco dependency and alcohol abuse who presents with epigastric pains and admitted for acute pancreatitis -Acute ETOH related pancreatitis: abd pain resolved, start diet, iv narcotics -Alcoholic DTs: cinm protocol, restraints renewed -Acute toxic metabolic encephalopathy due to alcohol -CTAP w/ shows gastritis, sb ileus, fatty liver: good bowel sounds, start diet -Accelerated hypertension: changed nss to half normal, ordered labetalolol iv prn -thrombocytopenia, most likely etoh related -mild hyponatremia, dehydration most likely -dvt prophylaxis: scd only due to fatty liver thrombocytopenia out of restraints, still lethargic post Etoh WD, Discharge held because he had one episode of nausea vomiting yesterday after lunch. He tolerated his dinner. If He has no nausea vomiting today can be discharged tomorrow History Interval history: Patient seen and examined. Follow up on abdominal pain. Overnight uneventful. Patient went into DTs with acute confusion and delirium. IM Haldol was given which improved his symptoms and he denies abd pains and asking for food. No cp, sob, n/v or severe headaches. Imaging, old records, testing, labs, nursing notes reviewed. Hospitalist Physical - Physical exam Narrative exam: GEN: WDWN, NAD, AWAKE, ALERT, ORIENTATED x 3 HEENT: NCAT, PERRL, EOMI, OP CLEAR NECK: SUPPLE, NO THYROMEGALY, NO JVD, NO LAD CVS: RRR, NORMAL S1S2 LUNGS/CHEST: CTA B, NORMAL CHEST EXPANSION B, GOOD AIR ENTRY B ABD: SOFT, NTND, GBS, NO REBOUND OR GUARDING EXT/SKIN: NO SIGNIFICANT EDEMA OR RASH MSK: FROM X 4 EXTREMITIES NEURO: CN 2-12 GROSSLY INTACT, NO FOCAL DEFICITS resolved PSY: Anxious - Constitutional Vitals: Temp Pulse Resp BP Pulse Ox 99.3 F 80 16 128/72 96 01/06/17 08:00 01/06/17 11:02 01/06/17 08:00 01/06/17 11:02 01/06/17 08:00 Results - Labs CBC & Chem 7: 01/06/17 04:43 01/06/17 04:43 Labs: Laboratory Last Values WBC 5.0 K/mm3 (4.5-11.0) 01/06/17 04:43 RBC 4.45 M/mm3 (3.65-5.03) 01/06/17 04:43 Hgb 14.4 gm/dl (11.8-15.2) 01/06/17 04:43 Hct 42.6 % (35.5-45.6) 01/06/17 04:43 MCV 96 fl (84-94) H 01/06/17 04:43 MCH 32 pg (28-32) 01/06/17 04:43 MCHC 34 % (32-34) 01/06/17 04:43 RDW 13.4 % (13.2-15.2) 01/06/17 04:43 Plt Count 102 K/mm3 (140-440) L 01/06/17 04:43 Lymph % (Auto) 20.6 % (13.4-35.0) 01/04/17 05:59 [place] % (Auto) 11.5 % (0.0-7.3) H 01/04/17 05:59 Eos % (Auto) 1.0 % (0.0-4.3) 01/04/17 05:59 Baso % (Auto) 0.4 % (0.0-1.8) 01/04/17 05:59 Lymph # 1.3 K/mm3 (1.2-5.4) 01/04/17 05:59 [place] # 0.7 K/mm3 (0.0-0.8) 01/04/17 05:59 Eos # 0.1 K/mm3 (0.0-0.4) 01/04/17 05:59 Baso # 0.0 K/mm3 (0.0-0.1) 01/04/17 05:59 Seg Neutrophils % 66.5 % (40.0-70.0) 01/04/17 05:59 Seg Neutrophils # 4.1 K/mm3 (1.8-7.7) 01/04/17 05:59 Sodium 138 mmol/L (137-145) 01/06/17 04:43 Potassium 3.5 mmol/L (3.6-5.0) L 01/06/17 04:43 Chloride 96.4 mmol/L (98-107) L 01/06/17 04:43 Carbon Dioxide 25 mmol/L (22-30) 01/06/17 04:43 Anion Gap 20 mmol/L 01/06/17 04:43 BUN 5 mg/dL (9-20) L 01/06/17 04:43 Creatinine 0.6 mg/dL (0.8-1.5) L 01/06/17 04:43 Estimated GFR > 60 ml/min 01/06/17 04:43 BUN/Creatinine Ratio 8.33 % 01/06/17 04:43 Glucose 148 mg/dL (75-100) H 01/06/17 04:43 Calcium 9.3 mg/dL (8.4-10.2) 01/06/17 04:43 Magnesium 1.80 mg/dL (1.7-2.3) 01/05/17 07:23 Total Bilirubin 0.50 mg/dL (0.1-1.2) 01/02/17 14:37 AST 41 units/L (5-40) H 01/02/17 14:37 ALT 42 units/L (7-56) 01/02/17 14:37 Alkaline Phosphatase 91 units/L (35-129) 01/02/17 14:37 Total Protein 8.8 g/dL (6.3-8.2) H 01/02/17 14:37 Albumin 4.7 g/dL (3.9-5) 01/02/17 14:37 Albumin/Globulin Ratio 1.1 % 01/02/17 14:37 Lipase 176 units/L (13-60) H 01/02/17 14:37 Plasma/Serum Alcohol < 0.01 gm% (0-0.07) 01/03/17 00:47
--- NOTE | 2017-01-06 14:27 | Progress Note ---
Subjective - Reason for Consult Consult date: 01/06/17 Reason for consult: etoh withdrawal Mental Status Exam - Vital signs Last Vital Signs Temp 99.3 F 01/06/17 08:00 Pulse 80 01/06/17 11:02 Resp 16 01/06/17 08:00 BP 128/72 01/06/17 11:02 Pulse Ox 96 01/06/17 08:00 Assessment and Plan Subjectively, patient remains fairly anxious and continues to have some mild withdrawal syndrome. Patient remains somewhat withdrawn and upset at the fact that he has been unable to engage in outpatient rehabilitation services to address his alcohol use. General Appearance: casually dressed, no acute distress Sensorium/Consciousness: alert and responding to external stimuli; clear Orientation: person, place, time and situation Eye Contact: limited Attitude / Behavior: guarded Psychomotor & Musculoskeletal Activity: WNL Mood: ok Affect: constricted, limited range Speech / Language: fluent, with normal rate/rhythm/tone Thought Processes: organized, logical, linear Thought Content: no SI, no HI Perception: no AVH Insight: limited Judgement: limitied Capacity for ADLs: independent Plan: Referr to outpatient rehab services at [facility] to help him abstain from his alcohol use
[2017-01-06] MEDS: REMERON PO SCH (21:56)
[2017-01-06] MEDS: APRESOLINE IV PRN (23:31)
[2017-01-07] MEDS: MORPHINE IV PRN (01:38)
[2017-01-07] MEDS: ATIVAN IV PRN ×2 (04:45→10:03)
[2017-01-07] MEDS: NACL 0.45% 1000 ML 1,000 ML IV SCH (05:34)
[2017-01-07 05:58] LABS: Hematocrit 40.9 % (35.5-45.6); Hemoglobin 13.8 gm/dl (11.8-15.2); Mean Corpuscular HGB Conc 34 % (32-34); Mean Corpuscular Hemoglobin 32 pg (28-32); Mean Corpuscular Volume 96 fl (84-94); Platelet Count 133 K/mm3 (140-440); Red Blood Count 4.27 M/mm3 (3.65-5.03); White Blood Count 4.7 K/mm3 (4.5-11.0)
[2017-01-07 06:20] LABS: Anion Gap 20 mmol/L; BUN/Creatinine Ratio 13.33; Blood Urea Nitrogen 8 mg/dL (9-20); Calcium 9.3 mg/dL (8.4-10.2); Carbon Dioxide 25 mmol/L (22-30); Chloride 99.4 mmol/L (98-107); Glucose 132 mg/dL (75-100); Potassium 3.9 mmol/L (3.6-5.0); Sodium 140 mmol/L (137-145)
[2017-01-07 09:02] VITALS: BP 130/80
[2017-01-07] MEDS: LOPRESSOR PO SCH (09:02)
--- NOTE | 2017-01-07 13:24 | Discharge Summary ---
Providers - Providers Date of Admission: 01/03/17 03:34 Date of discharge: 01/07/17 Attending physician: RUEL PONCE 01/04/17 06:55 Consult to Mental Health [CONS] Urgent Reason For Exam: etoh withdrawal, delirium Place consult to:: Psych Notified:: no Primary care physician: CFA Hospitalization Condition: Good Hospital course: Patient is a 36-year-old man with history of hypertension, tobacco dependency and alcohol abuse who presents with epigastric pains and admitted for acute pancreatitis -Acute ETOH related pancreatitis: abd pain resolved, start diet, iv narcotics -Alcoholic DTs: ciwa protocol, restraints renewed -Acute toxic metabolic encephalopathy due to alcohol -CTAP w/ shows gastritis, sb ileus, fatty liver: good bowel sounds, start diet -Accelerated hypertension: changed nss to half normal, ordered labetalolol iv prn -thrombocytopenia, most likely etoh related -mild hyponatremia, dehydration most likely -dvt prophylaxis: scd only due to fatty liver thrombocytopenia out of restraints, still lethargic post Etoh WD, Discharge held because he had one episode of nausea vomiting yesterday after lunch. He tolerated his dinner. Disposition: DC-01 TO HOME OR SELFCARE Time spent for discharge: 32 minutes Core Measure Documentation - Palliative Care Palliative Care/ Comfort Measures: Not Applicable - Core Measures Any of the following diagnoses?: none - VTE Discharge Requirements Deep Vein Thrombosis/Pulmonary Embolism Present on Admission: No Has pt received <5 days of overlap therapy or INR<2.0: No Anticoagulant overlap therapy prescribed at discharge: No Contraindication No Overlap Therapy order at DC: Not Indicated Exam - Physical Exam Narrative exam: GEN: WDWN, NAD, AWAKE, ALERT, ORIENTATED x 3 HEENT: NCAT, PERRL, EOMI, OP CLEAR NECK: SUPPLE, NO THYROMEGALY, NO JVD, NO LAD CVS: RRR, NORMAL S1S2 LUNGS/CHEST: CTA B, NORMAL CHEST EXPANSION B, GOOD AIR ENTRY B ABD: SOFT, NTND, GBS, NO REBOUND OR GUARDING EXT/SKIN: NO SIGNIFICANT EDEMA OR RASH MSK: FROM X 4 EXTREMITIES NEURO: CN 2-12 GROSSLY INTACT, NO FOCAL DEFICITS resolved PSY: Anxious - Constitutional Vitals: Temp Pulse Resp BP Pulse Ox 97.9 F 88 16 130/80 97 01/07/17 08:00 01/07/17 09:02 01/07/17 08:00 01/07/17 09:02 01/07/17 08:00 Plan Activity: advance as tolerated, other (no strenous activity until cleared by pcp ) Diet: advance as tolerated Special Instructions: record daily BP diary Follow up with: PRIMARY CARE,MD [Primary Care Provider] - 3-5 Days Prescriptions: RX: Thiamine [Vitamin B-1] 100 mg PO QDAY #30 tablet
== END 2017-01-07 15:30 | disposition home or self-care (01) | DRG 438 ==
LOC: ED 12:18 → 3A 01-03 03:34
PROVIDERS: ADMIT Internal Medicine; ATTEND Internal Medicine
DX: K85.20 Alcohol induced acute pancreatitis without necrosis or infection (principal); G92 Toxic encephalopathy; F10.231 Alcohol dependence with withdrawal delirium; E87.1 Hypo-osmolality and hyponatremia; I10 Essential (primary) hypertension; F17.210 Nicotine dependence, cigarettes, uncomplicated; K86.0 Alcohol-induced chronic pancreatitis; D69.6 Thrombocytopenia, unspecified; E86.0 Dehydration; F32.9 Major depressive disorder, single episode, unspecified; K29.70 Gastritis, unspecified, without bleeding; K76.0 Fatty (change of) liver, not elsewhere classified; Z59.0 Homelessness; Z82.49 Family history of ischemic heart disease and other diseases of the circulatory system
CPT/HCPCS: 36415; 74177; 80048; 80053; 80320; 83690; 83735; 85025; 85027; 96361; 96374; 96375; 99285; G0480; J0360; J1630; J2060; J2270; J2405; J3360; J7030; Q9967

== ENCOUNTER 2021-06-28 08:16 | Inpatient (IN) | payer SELFPAY ==
[2021-06-28] MEDS ORDERED: MORPHINE 2 MG/1 ML INJ IV ONE (09:22)
[2021-06-28] MEDS ORDERED: SODIUM CHLORIDE 0.9% 1000 ML 1,000 ML IV ONE ×2 (09:22→14:03)
[2021-06-28 09:27] LABS: Bilirubin,Urine NEG (Negative); Blood,Urine NEG (Negative); Color,Urine Yellow (Yellow); Mucus,Urine 1+ /HPF; Urobilinogen,Urine < 2.0 mg/dL (<2.0)
--- NOTE | 2021-06-28 09:29 | Emergency Department Report ---
HPI - General Chief Complaint: Abdominal Pain Time Seen by Provider: 06/28/21 08:24 - HPI HPI: 41-year-old male presents to the emergency department with complaint of a 2-day history of left upper quadrant abdominal pain. He had one episode of nausea wit h vomiting. He denies any fever, back pain, diarrhea, constipation, dysuria, chest pain or shortness of breath. He denies any past medical history. He took some extra strength Tylenol and some type of reflux medication, both [id number], with some mild transient relief. Currently he says his abdominal pain is 10 out of 10 in intensity. No known aggravating or alleviating factors. No recent travel or sick contacts at home. ED Past Medical Hx - Past Medical History Hx Asthma: No Additional medical history: ETOH abuse, pancreatitis - Social History Smoking Status: Current Every Day Smoker - Medications Home Medications: Home Medications Medication Instructions Recorded Confirmed Last Taken Type Thiamine [Vitamin B-1] 100 mg PO QDAY #30 tablet 01/07/17 Unknown Rx Hyoscyamine Subl [Levsin Sl 0.125 0.125 mg SL Q6HR PRN #20 tab 06/05/18 Unknown Rx TAB] Omeprazole 40 mg PO DAILY #30 capsule. 06/05/18 Unknown Rx ED Review of Systems ROS: Stated complaint: ABDOMINAL PAIN Other details as noted in HPI Comment: All other systems reviewed and negative Constitutional: denies: chills, fever Eyes: denies: eye pain, vision change ENT: denies: ear pain, throat pain Respiratory: denies: cough, shortness of breath Cardiovascular: denies: chest pain, palpitations Gastrointestinal: abdominal pain, nausea, vomiting Genitourinary: denies: dysuria, discharge Musculoskeletal: denies: back pain, arthralgia Skin: denies: rash, lesions Neurological: denies: headache, weakness Physical Exam - Physical Exam Vital Signs: Vital Signs 06/28/21 06/28/21 06/28/21 08:20 08:31 08:40 Temperature 98.1 F Pulse Rate 103 H 116 H Respiratory 16 Rate Blood Pressure 116/89 [Right] O2 Sat by Pulse 99 100 Oximetry ED Course Vital Signs 06/28/21 06/28/21 06/28/21 08:20 08:31 08:40 Temperature 98.1 F Pulse Rate 103 H 116 H Respiratory 16 Rate Blood Pressure 116/89 [Right] O2 Sat by Pulse 99 100 Oximetry ED Medical Decision Making - Lab Data Result diagrams: 06/28/21 09:26 06/28/21 09:26 Lab Results 06/28/21 06/28/21 06/28/21 Range/Units 09:26 09:26 12:16 WBC 7.3 (4.5-11.0) K/mm3 RBC 5.00 (3.65-5.03) M/mm3 Hgb 15.1 (11.8-15.2) gm/dl Hct 44.6 (35.5-45.6) % MCV 89 (84-94) fl MCH 30 (28-32) pg MCHC 34 (32-34) % RDW 13.3 (13.2-15.2) % Plt Count 232 (140-440) K/mm3 Lymph % (Auto) 28.1 (13.4-35.0) % [place] % (Auto) 7.2 (0.0-7.3) % Eos % (Auto) 0.5 (0.0-4.3) % Baso % (Auto) 0.6 (0.0-1.8) % Lymph # (Auto) 2.0 (1.2-5.4) K/mm3 [place] # (Auto) 0.5 (0.0-0.8) K/mm3 Eos # (Auto) 0.0 (0.0-0.4) K/mm3 Baso # (Auto) 0.0 (0.0-0.1) K/mm3 Seg Neutrophils % 63.6 (40.0-70.0) % Seg Neutrophils # 4.6 (1.8-7.7) K/mm3 Sodium 138 (137-145) mmol/L Potassium 3.8 (3.6-5.0) mmol/L Chloride 98.1 (98-107) mmol/L Carbon Dioxide 22 (22-30) mmol/L Anion Gap 22 mmol/L BUN 9 (9-20) mg/dL Creatinine 0.9 (0.8-1.3) mg/dL Estimated GFR > 60 ml/min BUN/Creatinine Ratio 10 % Glucose 85 (75-100) mg/dL Calcium 9.5 (8.4-10.2) mg/dL Total Bilirubin 0.40 (0.1-1.2) mg/dL Direct Bilirubin < 0.2 (0-0.2) mg/dL Indirect Bilirubin 0.2 mg/dL AST 35 (5-40) units/L ALT 26 (7-56) units/L Alkaline Phosphatase 82 (35-129) units/L Total Protein 8.2 (6.3-8.2) g/dL Albumin 4.7 (3.9-5) g/dL Albumin/Globulin Ratio 1.3 % Amylase 116 (27-131) units/L Lipase 65 H (13-60) units/L - Radiology Data Radiology results: report reviewed, image reviewed interpreted by me: Chest x-ray does not show any acute process. There are no pleural effusions, obvious pneumonia and there is no pneumothorax. No widened mediastinum. Abdominal x-ray shows nonspecific nonobstructive bowel gas. No free air. CT abdomen pelvis w con INDICATION: Upper abd pain OMNI 300 100 ML. COMPARISON: CT abdomen pelvis 01/03/2017 TECHNIQUE: Abdominal and pelvic CT exam performed. All CT scans at this location are performed using CT dose reduction for ALARA by means of automated exposure control. FINDINGS: CT ABDOMEN and PELVIS: Lung Bases: No significant abnormality. Liver: No significant abnormality. Biliary: No significant abnormality. Spleen: No significant abnormality. Pancreas: There are calcifications seen throughout the pancreatic parenchyma which have progressed since 2017. No organized collection. There is minimal peripancreatic stranding seen within the body the pancreas with decreased enhancement of the parenchyma. Adrenals: No significant abnormality. Kidneys: No significant abnormality. Lymphatics: No lymphadenopathy. Vasculature: No significant abnormality. Bowel: No significant abnormality. Pelvis: No significant abnormality. Osseous Structures: No aggressive osseous lesion. Additional Findings: None IMPRESSION: 1. Findings consistent with acute on chronic pancreatitis. No organized collection. There is decreased enhancement seen within the body the pancreas which can be seen in the setting of necrosis. - Medical Decision Making This patient presents with a 2 to 3-day history of upper abdominal pain and one episode of nausea with vomiting. There is some reproducible left upper quadrant and epigastric abdominal tenderness to palpation. Labs are mostly unremarkable except for a slightly elevated lipase level. CT of the abdomen and pelvis with IV contrast shows acute on chronic pancreatitis with an area of necrosis within the pancreatic body. Patient was given IV fluid resuscitation and IV analgesia and he continues to have abdominal discomfort. He will be admitted to the hospital for further evaluation and treatment was accepted for admission by the hospitalist, Dr. Valdivia. Critical Care Time: No Critical care attestation.: If time is entered above; I have spent that time in minutes in the direct care of this critically ill patient, excluding procedure time. ED Disposition Clinical Impression: Intractable abdominal pain Pancreatitis Qualifiers: Chronicity: acute Pancreatitis type: unspecified pancreatitis type Acute pa ncreatitis complication: uninfected necrosis Qualified Code(s): K85.91 - Acute pancreatitis with uninfected necrosis, unspecified Disposition: 09 ADMITTED INPATIENT Is pt being admited?: Yes Condition: Fair Time of Disposition: 12:33
--- NOTE | 2021-06-28 09:54 | XRay Report ---
Abdominal series with 1 view chest x-ray. INDICATION / CLINICAL INFORMATION: Abdominal pain. COMPARISON: None available. FINDINGS: No acute findings within the chest. Cardiomediastinal silhouette is within normal limits in terms of size. No focal pulmonary consolidation or edema. TUBES / LINES: None. BOWEL GAS PATTERN: No gas-distended loops of intestines. FREE AIR / EXTRALUMINAL GAS: None seen. ADDITIONAL FINDINGS: A few calcific densities are noted overlying left upper abdomen. Indeterminate o [place]io calcific density in the right lower pelvis, possibly large phlebolith. IMPRESSION: Nonobstructive bowel gas pattern. A few calcific densities overlie the left upper abdomen. These may represent renal calculi. If pain p ersists or additional evaluation is clinically indicated, a CT may be considered for further evaluati on. No acute findings within the chest. Signer Name: Price Hdz MD Signed: 06/28/2021 9:49 AM Workstation Name: [id number]
[2021-06-28 10:16] LABS: Basophils % (Auto) 0.6 % (0.0-1.8); Eosinophils % (Auto) 0.5 % (0.0-4.3); Hematocrit 44.6 % (35.5-45.6); Hemoglobin 15.1 gm/dl (11.8-15.2); Lymphocytes % (Auto) 28.1 % (13.4-35.0); Mean Corpuscular HGB Conc 34 % (32-34); Mean Corpuscular Volume 89 fl (84-94); Monocytes # (Auto) 0.5 K/mm3 (0.0-0.8); Monocytes % (Auto) 7.2 % (0.0-7.3); Platelet Count 232 K/mm3 (140-440); Red Cell Distribution Width 13.3 % (13.2-15.2)
[2021-06-28 10:48] LABS: Alanine Aminotransferase 26 units/L (7-56); Albumin 4.7 g/dL (3.9-5); BUN/Creatinine Ratio 10; Blood Urea Nitrogen 9 mg/dL (9-20); Calcium 9.5 mg/dL (8.4-10.2); Hemolysis Index 13
[2021-06-28 10:50] LABS: Bilirubin,Direct < 0.2 mg/dL (0-0.2)
--- NOTE | 2021-06-28 11:42 | Cat Scan Report ---
CT abdomen pelvis w con INDICATION: Upper abd pain OMNI 300 100 ML. COMPARISON: CT abdomen pelvis 01/03/2017 TECHNIQUE: Abdominal and pelvic CT exam performed. All CT scans at this location are performed using CT dose reduction for ALARA by means of automated exposure control. FINDINGS: CT ABDOMEN and PELVIS: Lung Bases: No significant abnormality. Liver: No significant abnormality. Biliary: No significant abnormality. Spleen: No significant abnormality. Pancreas: There are calcifications seen throughout the pancreatic parenchyma which have progressed si nce 2016. No organized collection. There is minimal peripancreatic stranding seen within the body the pancreas with decreased enhancement of the parenchyma. Adrenals: No significant abnormality. Kidneys: No significant abnormality. Lymphatics: No lymphadenopathy. Vasculature: No significant abnormality. Bowel: No significant abnormality. Pelvis: No significant abnormality. Osseous Structures: No aggressive osseous lesion. Additional Findings: None IMPRESSION: 1. Findings consistent with acute on chronic pancreatitis. No organized collection. There is decrease d enhancement seen within the body the pancreas which can be seen in the setting of necrosis. Signer Name: Shahbaz Cavanaugh MD Signed: 06/28/2021 11:37 AM Workstation Name: [id number]
[2021-06-28] MEDS ORDERED: MORPHINE 4 MG/1 ML INJ IV ONE (14:03)
[2021-06-28] MEDS ORDERED: METOCLOPRAMIDE 10 MG/2 ML INJ IV PRN (18:50)
[2021-06-28] MEDS ORDERED: ONDANSETRON 4 MG/2 ML INJ IV PRN (18:50)
[2021-06-28] MEDS ORDERED: PROMETHAZINE 25 MG RECT SUPP PR PRN (18:50)
[2021-06-28] MEDS ORDERED: ACETAMINOPHEN 325 MG TAB PO PRN (18:50)
[2021-06-28] MEDS ORDERED: LORazepam 2 MG/ML VIAL IV PRN (19:00)
--- NOTE | 2021-06-28 19:05 | History and Physical Report ---
History of Present Illness Date of examination: 06/28/21 Date of admission: 06/28/21 12:33 Chief complaint: Diffuse abdominal pain for 2 days History of present illness: 41-year-old male comes to the emergency room for severe abdominal pain of 2 days duration. He had one episode of nausea and vomiting. Abdominal pain is 10 on a scale of 1-10. No diarrhea. No constipation. Had acute pancreatitis in the past. History of EtOH dependence present. No known aggravating or relieving factors. No recent travel or sick contacts. Patient took Tylenol and reflux m edications with mild transient relief. No fever or chills. No recent travel or sick contacts. No exposure to Covid virus. EtOH on a regular basis. Does not want to quantify. - Past Medical History ETOH abuse, pancreatitis -Past surgical history --none - Social History Smoking Status: Current Every Day Smoker -Family history Htn - Medications Home Medications: Home Medications Medication Instructions Recorded Confirmed Last Taken Type Thiamine [Vitamin B-1] 100 mg PO QDAY #30 tablet 01/07/17 Unknown Rx Hyoscyamine Subl [Levsin Sl 0.125 0.125 mg SL Q6HR PRN #20 tab 06/05/18 Unknown Rx TAB] Omeprazole 40 mg PO DAILY #30 capsule. 06/05/18 Unknown Rx Review of Systems ROS: Stated complaint: ABDOMINAL PAIN Other details as noted in HPI Comment: All other systems reviewed and negative Constitutional: denies: chills, fever Eyes: denies: eye pain, vision change ENT: denies: ear pain, throat pain Respiratory: denies: cough, shortness of breath Cardiovascular: denies: chest pain, palpitations Gastrointestinal: abdominal pain, nausea, vomiting Genitourinary: denies: dysuria, discharge Musculoskeletal: denies: back pain, arthralgia Skin: denies: rash, lesions Neurological: denies: headache, weakness Medications and Allergies Allergies Allergy/AdvReac Type Severity Reaction Status Date / Time No Known Allergies Allergy Verified 06/05/18 07:50 Home Medications Medication Instructions Recorded Confirmed Last Taken Type No Known Home Medications [No 06/28/21 06/28/21 Unknown History Reported Home Medications] Active Meds: Active Medications Sodium Chloride (Nacl 0.9% 1000 Ml) 1,000 mls @ 125 mls/hr IV ONCE ONE Stop: 06/28/21 22:02 Last Admin: 06/28/21 15:22 Dose: 125 mls/hr Documented by: Exam - Constitutional Vitals: Temp Pulse Resp BP Pulse Ox 98.9 F 95 H 19 137/86 97 06/28/21 17:48 06/28/21 17:48 06/28/21 17:48 06/28/21 17:48 06/28/21 17:48 General appearance: Present: no acute distress, well-nourished - EENT Eyes: Present: PERRL ENT: hearing intact, clear oral mucosa - Neck Neck: Present: supple, normal ROM - Respiratory Respiratory effort: normal Respiratory: bilateral: CTA - Cardiovascular Heart rate: 72 Rhythm: regular Heart Sounds: Present: S1 & S2. Absent: rub, click - Extremities Extremities: no ischemia, pulses symmetrical, No edema Peripheral Pulses: within normal limits - Abdominal General gastrointestinal: Present: soft, tender, non-distended, normal bowel sounds Localized gastrointestinal: tender: diffuse, epigastric periumbilical, guarding: diffuse, epigastric periumbilical Male genitourinary: Present: normal - Integumentary Integumentary: Present: clear, warm, dry - Musculoskeletal Musculoskeletal: gait normal, strength equal bilaterally - Psychiatric Psychiatric: appropriate mood/affect, intact judgment & insight - Neurologic Neurologic: CNII-XII intact, moves all extremities - Allied Health Allied health notes reviewed: nursing, case management HEART Score - HEART Score History: Slightly suspicious Risk factors: No known risk factors Troponin: < normal limit - Critical Actions Critical Actions: 0-3 pts:0.9-1.7%risk of adverse cardiac event.Candidate for discharge Results - Labs CBC & Chem 7: 06/28/21 09:26 06/28/21 09:26 Labs: Laboratory Last Values WBC 7.3 K/mm3 (4.5-11.0) 06/28/21 09:26 RBC 5.00 M/mm3 (3.65-5.03) 06/28/21 09:26 Hgb 15.1 gm/dl (11.8-15.2) 06/28/21 09:26 Hct 44.6 % (35.5-45.6) 06/28/21 09:26 MCV 89 fl (84-94) 06/28/21 09:26 MCH 30 pg (28-32) 06/28/21 09:26 MCHC 34 % (32-34) 06/28/21 09:26 RDW 13.3 % (13.2-15.2) 06/28/21 09:26 Plt Count 232 K/mm3 (140-440) 06/28/21 09:26 Lymph % (Auto) 28.1 % (13.4-35.0) 06/28/21 09:26 [place] % (Auto) 7.2 % (0.0-7.3) 06/28/21 09:26 Eos % (Auto) 0.5 % (0.0-4.3) 06/28/21 09:26 Baso % (Auto) 0.6 % (0.0-1.8) 06/28/21 09:26 Lymph # (Auto) 2.0 K/mm3 (1.2-5.4) 06/28/21 09:26 [place] # (Auto) 0.5 K/mm3 (0.0-0.8) 06/28/21 09:26 Eos # (Auto) 0.0 K/mm3 (0.0-0.4) 06/28/21 09:26 Baso # (Auto) 0.0 K/mm3 (0.0-0.1) 06/28/21 09:26 Seg Neutrophils % 63.6 % (40.0-70.0) 06/28/21 09:26 Seg Neutrophils # 4.6 K/mm3 (1.8-7.7) 06/28/21 09:26 Sodium 138 mmol/L (137-145) 06/28/21 09:26 Potassium 3.8 mmol/L (3.6-5.0) 06/28/21 09:26 Chloride 98.1 mmol/L (98-107) 06/28/21 09:26 Carbon Dioxide 22 mmol/L (22-30) 06/28/21 09:26 Anion Gap 22 mmol/L 06/28/21 09:26 BUN 9 mg/dL (9-20) 06/28/21 09:26 Creatinine 0.9 mg/dL (0.8-1.3) 06/28/21 09:26 Estimated GFR > 60 ml/min 06/28/21 09:26 BUN/Creatinine Ratio 10 % 06/28/21 09:26 Glucose 85 mg/dL (75-100) 06/28/21 09:26 Calcium 9.5 mg/dL (8.4-10.2) 06/28/21 09:26 Total Bilirubin 0.40 mg/dL (0.1-1.2) 06/28/21 09:26 Direct Bilirubin < 0.2 mg/dL (0-0.2) 06/28/21 09:26 Indirect Bilirubin 0.2 mg/dL 06/28/21 09:26 AST 35 units/L (5-40) 06/28/21 09:26 ALT 26 units/L (7-56) 06/28/21 09:26 Alkaline Phosphatase 82 units/L (35-129) 06/28/21 09:26 Total Protein 8.2 g/dL (6.3-8.2) 06/28/21 09:26 Albumin 4.7 g/dL (3.9-5) 06/28/21 09:26 Albumin/Globulin Ratio 1.3 % 06/28/21 09:26 Amylase 116 units/L (27-131) 06/28/21 12:16 Lipase 65 units/L (13-60) H 06/28/21 09:26 Urine Color Yellow (Yellow) 06/28/21 Unknown Urine Turbidity Clear (Clear) 06/28/21 Unknown Urine pH 5.0 (5.0-7.0) 06/28/21 Unknown Ur Specific [place] 1.023 (1.003-1.030) 06/28/21 Unknown Urine Protein 30 mg/dl mg/dL (Negative) 06/28/21 Unknown Urine Glucose (UA) Neg mg/dL (Negative) 06/28/21 Unknown Urine Ketones 80 mg/dL (Negative) 06/28/21 Unknown Urine Blood Neg (Negative) 06/28/21 Unknown Urine Nitrite Neg (Negative) 06/28/21 Unknown Urine Bilirubin Neg (Negative) 06/28/21 Unknown Urine Urobilinogen < 2.0 mg/dL (<2.0) 06/28/21 Unknown Ur Leukocyte Esterase Neg (Negative) 06/28/21 Unknown Urine WBC (Auto) 4.0 /HPF (0.0-6.0) 06/28/21 Unknown Urine RBC (Auto) 2.0 /HPF (0.0-6.0) 06/28/21 Unknown U Epithel Cells (Auto) < 1.0 /HPF (0-13.0) 06/28/21 Unknown Urine Mucus 1+ /HPF 06/28/21 Unknown Short CBC 06/28/21 Range/Units 09:26 WBC 7.3 (4.5-11.0) K/mm3 Hgb 15.1 (11.8-15.2) gm/dl Hct 44.6 (35.5-45.6) % Plt Count 232 (140-440) K/mm3 BMP 06/28/21 06/28/21 09:26 20:19 Sodium 138 Potassium 3.8 Chloride 98.1 Carbon Dioxide 22 BUN 9 Creatinine 0.9 Glucose 85 Calcium 9.5 8.8 Liver Function 06/28/21 06/28/21 Range/Units 09:26 20:19 Total Bilirubin 0.40 (0.1-1.2) mg/dL Direct Bilirubin < 0.2 (0-0.2) mg/dL AST 35 (5-40) units/L ALT 26 (7-56) units/L Alkaline Phosphatase 82 (35-129) units/L Albumin 4.7 4.0 (3.9-5) g/dL Urine 06/28/21 Range/Units Unknown Urine Color Yellow (Yellow) Urine pH 5.0 (5.0-7.0) Ur Specific [place] 1.023 (1.003-1.030) Urine Protein 30 mg/dl (Negative) mg/dL Urine Glucose (UA) Neg (Negative) mg/dL - Imaging and Cardiology Imaging and Cardiology: Chest and abdominal x-ray To bowel gas pattern A few calcific densities overlie the left upper abdomen. This may represent renal calculi. If pain persists or radiation evaluation is clinically indicated a CT may be considered for further evaluation. Abdominal CAT scan Findings consistent with acute on chronic pancreatitis. No organized collection. There is decreased enhancement seen within the body of the pancreas which can be seen in the setting of necrosis. Addendum pancreas there are calcifications seen throughout the pancreatic parenchyma which have progressed since 2017. No evidence collection. There is minimal peripancreatic stranding seen within the body of the pancreas with decreased enhancement of the parenchyma. Assessment and Plan Advance Directives: Yes (Full code) VTE prophylaxis?: Chemical Plan of care discussed with patient/family: Yes - Patient Problems (1) Acute pancreatitis Current Visit: Yes Status: Acute Qualifiers: Acute pancreatitis complication: unspecified Plan to address problem: Acute on chronic pancreatitis Keep the patient n.p.o. IV fluids Symptomatic treatment Pain management Amylase not elevated Lipase is slightly elevated at 65 Possible alcohol induced Patient under represents his alcohol intake (2) EtOH dependence Current Visit: Yes Status: Chronic Qualifiers: Substance use status: uncomplicated Qualified Code(s): F10.20 - Alcohol dependence, uncomplicated Plan to address problem: No withdrawal symptoms. CIWA protocol initiated if any withdrawal symptoms appear Counseled about EtOH intake (3) Nicotine dependence Current Visit: Yes Status: Acute (4) Advance directive discussed with patient Current Visit: Yes Status: Acute (5) Nicotine dependence Current Visit: Yes Status: Chronic Qualifiers: Nicotine product type: cigarettes Plan to address problem: Patient initiated on NicoDerm patch Patient counseled about effects of smoking and injuries to the vascular system and carcinogenesis (6) DVT prophylaxis Current Visit: Yes Status: Acute Plan to address problem: On anticoagulation GI prophylaxis (7) Advanced directives, counseling/discussion Current Visit: Yes Status: Acute Plan to address problem: Disease education conducted, care plan discussed, diagnosis discussed and prognosis discussed. Patient is full code patient acknowledges understanding and agrees with care plan. +30 minutes
[2021-06-28 21:00] LABS: Calcium 8.8 mg/dL (8.4-10.2)
[2021-06-28] MEDS: HYDROmorphone 1 MG/1 ML INJ IV PRN (21:31)
[2021-06-28] MEDS: HEPARIN 5,000 UNIT/1 ML VIAL SUB-Q SCH (21:31)
[2021-06-28] MEDS: FAMOTIDINE 20 MG/2 ML INJ IV SCH (21:31)
[2021-06-28] MEDS: D5W/0.9% NACL 1,000 ML IV SCH (21:34)
[2021-06-29 07:25] LABS: Basophils % (Auto) 0.7 % (0.0-1.8); Eosinophils % (Auto) 0.5 % (0.0-4.3); Hematocrit 40.5 % (35.5-45.6); Hemoglobin 13.5 gm/dl (11.8-15.2); Lymphocytes # (Auto) 2.1 K/mm3 (1.2-5.4); Lymphocytes % (Auto) 42.5 % (13.4-35.0); Mean Corpuscular HGB Conc 33 % (32-34); Mean Corpuscular Volume 90 fl (84-94); Monocytes # (Auto) 0.4 K/mm3 (0.0-0.8); Platelet Count 184 K/mm3 (140-440); Red Blood Count 4.52 M/mm3 (3.65-5.03); Red Cell Distribution Width 13.3 % (13.2-15.2)
[2021-06-29 07:43] LABS: Alanine Aminotransferase 19 units/L (7-56); Albumin 3.9 g/dL (3.9-5); BUN/Creatinine Ratio 14; Blood Urea Nitrogen 14 mg/dL (9-20); Calcium 8.6 mg/dL (8.4-10.2); Hemolysis Index 6
[2021-06-29] MEDS: HEPARIN 5,000 UNIT/1 ML VIAL SUB-Q SCH ×3 (08:51→22:43)
[2021-06-29] MEDS: FAMOTIDINE 20 MG/2 ML INJ IV SCH ×3 (08:51→22:43)
[2021-06-29] MEDS: HYDROmorphone 1 MG/1 ML INJ IV PRN ×2 (08:52→17:56)
[2021-06-29] MEDS: NICOTINE 14 MG/24 HR PATCH TD SCH (10:00)
[2021-06-29] MEDS: D5W/0.9% NACL 1,000 ML IV SCH (17:56)
--- NOTE | 2021-06-29 20:09 | Progress Note ---
Assessment and Plan - Patient Problems (1) Acute pancreatitis Current Visit: Yes Status: Acute Qualifiers: Acute pancreatitis complication: unspecified Plan to address problem: Acute on chronic pancreatitis Keep the patient n.p.o. IV fluids Symptomatic treatment Pain management Amylase not elevated Lipase is slightly elevated at 65 Possible alcohol induced Patient under represents his alcohol intake (2) EtOH dependence Current Visit: Yes Status: Chronic Qualifiers: Substance use status: uncomplicated Qualified Code(s): F10.20 - Alcohol dependence, uncomplicated Plan to address problem: No withdrawal symptoms. CIWA protocol initiated if any withdrawal symptoms appear Counseled about EtOH intake (3) Nicotine dependence Current Visit: Yes Status: Acute (4) DVT prophylaxis Current Visit: Yes Status: Acute Plan to address problem: On anticoagulation GI prophylaxis (5) Advanced directives, counseling/discussion Current Visit: Yes Status: Acute Plan to address problem: Disease education conducted, care plan discussed, diagnosis discussed and prognosis discussed. Patient is full code patient acknowledges understanding and agrees with care plan. +30 minutes Subjective Date of service: 06/29/21 Objective - Constitutional Vitals: Vital Signs - 12hr 06/29/21 06/29/21 06/29/21 09:08 12:09 16:36 Temperature 98.1 F 98.2 F Pulse Rate 77 78 Respiratory 16 16 Rate Blood Pressure 128/87 137/87 O2 Sat by Pulse 98 98 97 Oximetry 06/29/21 19:00 Temperature Pulse Rate Respiratory 18 Rate Blood Pressure O2 Sat by Pulse Oximetry General appearance: Present: no acute distress, well-nourished - EENT Eyes: PERRL, EOM intact ENT: hearing intact, clear oral mucosa Ears: bilateral: normal - Neck Neck: supple, normal ROM - Respiratory Respiratory effort: normal Respiratory: bilateral: CTA - Breasts Breasts: normal - Cardiovascular Rhythm: regular Heart Sounds: Present: S1 & S2. Absent: gallop, rub Extremities: pulses intact, No edema, normal color, Full ROM - Gastrointestinal General gastrointestinal: Present: soft, non-tender, non-distended, normal bowel sounds - Genitourinary Male genitourinary: normal - Integumentary Integumentary: clear, warm, dry - Musculoskeletal Musculoskeletal: 1, strength equal bilaterally - Neurologic Neurologic: moves all extremities - Psychiatric Psychiatric: memory intact, appropriate mood/affect, intact judgment & insight - Labs CBC & Chem 7: 06/29/21 06:54 06/29/21 06:54 Labs: Abnormal lab results 06/29/21 06/29/21 Range/Units 06:54 06:54 Lymph % (Auto) 42.5 H (13.4-35.0) % [place] % (Auto) 9.0 H (0.0-7.3) % Glucose 112 H (75-100) mg/dL HEART Score - HEART Score Risk factors: No known risk factors Troponin: < normal limit - Critical Actions Critical Actions: 0-3 pts:0.9-1.7%risk of adverse cardiac event.Candidate for discharge
[2021-06-30] MEDS: D5W/0.9% NACL 1,000 ML IV SCH (01:09)
[2021-06-30] MEDS: NICOTINE 14 MG/24 HR PATCH TD SCH (09:26)
[2021-06-30] MEDS: FAMOTIDINE 20 MG/2 ML INJ IV SCH (09:26)
[2021-06-30] MEDS: HEPARIN 5,000 UNIT/1 ML VIAL SUB-Q SCH (09:27)
[2021-06-30 13:14] VITALS: BP 133/89
--- NOTE | 2021-06-30 13:22 | Discharge Summary ---
Providers - Providers Date of Admission: 06/29/21 16:00 Date of discharge: 06/30/21 Attending physician: KHOI BARRIGA Primary care physician: UI SOFTWARE DEVELOPER Hospitalization Condition: Fair Disposition: 01 HOME / SELF CARE / HOMELESS - Discharge Diagnoses (1) Acute pancreatitis Status: Acute Qualifiers: Acute pancreatitis complication: unspecified (2) EtOH dependence Status: Chronic Qualifiers: Substance use status: uncomplicated Qualified Code(s): F10.20 - Alcohol dependence, uncomplicated (3) Nicotine dependence Status: Acute (4) DVT prophylaxis Status: Acute (5) Advanced directives, counseling/discussion Status: Acute Exam - Constitutional Vitals: Temp Pulse Resp BP Pulse Ox 97.6 F 73 16 133/89 96 06/30/21 11:31 06/30/21 11:31 06/30/21 11:31 06/30/21 11:31 06/30/21 11:31 Plan Follow up with: DAT LOVE MD [Primary Care Provider] - 3-5 Days RNOEN TIPTON MD [Staff Physician] - 7 Days Prescriptions: Pantoprazole Sodium [Protonix] 40 mg PO QDAY #30 traMADoL [Ultram 50 MG tab] 50 mg PO Q6HR PRN #20 tablet PRN Reason: Pain
--- NOTE | 2021-06-30 13:33 | Event Note ---
Date: 06/30/21 Angelica Melgar was admitted on 06/28/2021 for acute illness and being discharged on 06/30/2021 in stable condition. Patient can return to work from 07/02/2021. Any questions call us at [phone]--Dr. Valdivia the attending physician
== END 2021-06-30 14:16 | disposition home or self-care (01) | DRG 440 ==
LOC: ED 08:16 → 3A 12:33 → OBSVTOIN 06-29 16:00
PROVIDERS: ADMIT Internal Medicine; ATTEND Internal Medicine
DX: K85.90 Acute pancreatitis without necrosis or infection, unspecified (principal); F10.20 Alcohol dependence, uncomplicated; Z82.49 Family history of ischemic heart disease and other diseases of the circulatory system; F17.210 Nicotine dependence, cigarettes, uncomplicated; Z71.6 Tobacco abuse counseling
CPT/HCPCS: 36415; 74022; 74177; 80048; 80053; 80076; 81001; 82040; 82140; 82150; 82310; 83690; 83735; 84100; 85025; 99406; G0378; J3490; Q0162; J1170; J1644; J2270; J7030; J7042; Q9967

== ENCOUNTER 2021-10-29 08:19 | Emergency (ER) | payer SELFPAY ==
[2021-10-29 09:31] VITALS: BP 137/84
[2021-10-29] MEDS ORDERED: FLUORESCEIN 1 MG STRIP OP ONE (10:08)
[2021-10-29] MEDS ORDERED: TETRACAINE 0.5% OPHTH SOLN 4ML OU STA (10:11)
[2021-10-29] MEDS ORDERED: ERYTHROMYCIN 5 MG/1 GM OPHTH OINT OS ONE (10:36)
--- NOTE | 2021-10-29 10:39 | Emergency Department Report ---
ED Eye Problem HPI - General Chief complaint: Eye Problems Stated complaint: SEVERE LEFT EYE PAIN Time Seen by Provider: 10/29/21 09:49 Source: patient Mode of arrival: Ambulatory Limitations: No Limitations - History of Present Illness Initial comments: 41-year-old black male with no past medical history presents to the emergency department for evaluation of 5-day history of worsening eye redness and pain. He states that on Sunday he developed redness and pain to his left eye he states that pain resolved but then he started to have drainage, photophobia, and felt like something was in his eye. He states that he put [id number] eyedrops in his eye without improvement. He denies fever and crusting of eyes in a.m. He states that he is having some blurred vision to his left eye because it hurts so bad when the light hits it. He denies injury or trauma. chief complaint: eye pain, eye redness -: Gradual, days(s) (5) Onset Description: gradual Location: left eye Place: home, work If Injury: none Eye Symptoms: burning, redness, pain, foreign body sensation, discharge, decreased vision, photophobia Severity: mild Severity scale (0 -10): 1 If Pain, Quality: throbbing Consistency: intermittent Associated Symptoms: denies: headache, neck pain, nausea/vomiting, cough, rhinorrhea, fever, shortness of breath Treatments Prior to Arrival: OTC eye drops - Related Data Previous Rx's Medication Instructions Recorded Last Taken Type Pantoprazole Sodium [Protonix] 40 mg PO QDAY #30 06/30/21 Unknown Rx traMADoL [Ultram 50 MG tab] 50 mg PO Q6HR PRN #20 tablet 06/30/21 Unknown Rx Polymyxin B Sulf/Trimethoprim 1 drop OS QID #10 ml 10/29/21 Unknown Rx [Polytrim Eye Drops] Allergies Allergy/AdvReac Type Severity Reaction Status Date / Time No Known Allergies Allergy Verified 06/05/18 07:50 ED Review of Systems ROS: Stated complaint: SEVERE LEFT EYE PAIN Other details as noted in HPI Comment: All other systems reviewed and negative Constitutional: denies: chills, fever Eyes: eye pain, eye discharge, vision change ENT: denies: ear pain, dental pain, hearing loss, epistaxis, congestion Respiratory: denies: cough, shortness of breath Cardiovascular: denies: chest pain, palpitations, dyspnea on exertion Gastrointestinal: denies: abdominal pain, nausea, vomiting Neurological: denies: headache, weakness ED Past Medical Hx - Past Medical History Previous Medical History?: Yes Hx Congestive Heart Failure: No Hx Diabetes: No Hx Asthma: No Hx COPD: No Hx HIV: No Additional medical history: ETOH abuse, pancreatitis - Surgical History Past Surgical History?: No - Social History Smoking Status: Never Smoker - Medications Home Medications: Home Medications Medication Instructions Recorded Confirmed Last Taken Type Pantoprazole Sodium [Protonix] 40 mg PO QDAY #30 granpkt.dr 06/30/21 Unknown Rx traMADoL [Ultram 50 MG tab] 50 mg PO Q6HR PRN #20 tablet 06/30/21 Unknown Rx Polymyxin B Sulf/Trimethoprim 1 drop OS QID #10 ml 10/29/21 Unknown Rx [Polytrim Eye Drops] ED Physical Exam - General Limitations: No Limitations General appearance: alert, in no apparent distress - Head Head exam: Present: atraumatic, normocephalic - Expanded Eye Exam Expanded Eyelids: Normal Inspection: Left Pupils: Regular, Round: Bilateral, Reactive: Bilateral Sclera/Conjunctival: Normal Inspection: Right, Injection: Left Visual acuity (R) = 20/: 40 Visual acuity (L) = 20/: 200 With correction: No - ENT ENT exam: Present: normal exam, normal orophraynx - Neck Neck exam: Present: normal inspection - Respiratory Respiratory exam: Absent: respiratory distress - Cardiovascular Cardiovascular Exam: Present: regular rate - GI/Abdominal GI/Abdominal exam: Absent: distended - Extremities Exam Extremities exam: Present: normal inspection - Back Exam Back exam: Present: normal inspection - Neurological Exam Neurological exam: Present: alert, oriented X3, normal gait - Psychiatric Psychiatric exam: Present: normal affect, normal mood - Skin Skin exam: Present: warm, dry, intact, normal color ED Course Vital Signs 10/29/21 09:30 Temperature 98.6 F Pulse Rate 90 Respiratory 18 Rate Blood Pressure 137/84 [Right] O2 Sat by Pulse 100 Oximetry - Eye Procedure Alcaine Drops Administered: No (Tetracaine eyedrops administered) Eye Irrigated w/ Saline (ccs): 10 Antibiotic Oinment/Drps Admin: left eye Progress: Tetracaine drops administered then fluorescein strip applied. I examined with Pavon lamp, and patient was noted to have moderate sized corneal abrasion. Eye was irrigated with 10 cc normal saline then erythromycin ointment applied. Patient tolerated well ED Medical Decision Making - Medical Decision Making 41-year-old black male with no past medical history presents to the emergency department for evaluation of 5-day history of worsening eye redness and pain. He states that on Sunday he developed redness and pain to his left eye he states that pain resolved but then he started to have drainage, photophobia, and felt like something was in his eye. He states that he put [id number] eyedrops in his eye without improvement. He denies fever and crusting of eyes in a.m. He states that he is having some blurred vision to his left eye because it hurts so bad when the light hits it. He denies injury or trauma Patient noted to have left corneal abrasion on Pavon lamp examination. Patient will be discharged home with Polytrim drops to use 4 times a day and advised to follow-up with ophthalmology if no improvement or worsening symptoms. He verbalized understanding of and agreement with plan of care. Critical care attestation.: If time is entered above; I have spent that time in minutes in the direct care of this critically ill patient, excluding procedure time. ED Disposition Clinical Impression: Corneal abrasion, left Qualifiers: Encounter type: initial encounter Qualified Code(s): S05.02XA - Injury of conjunctiva and corneal abrasion without foreign body, left eye, initial encounter Disposition: 01 HOME / SELF CARE / HOMELESS Is pt being admited?: No Does the pt Need Aspirin: No Condition: Stable Instructions: Corneal Abrasion, [id number] Additional Instructions: Take medications as prescribed. Follow-up with ophthalmology (eye doctor) if no improvement or worsening symptoms. Prescriptions: Polymyxin B Sulf/Trimethoprim [Polytrim Eye Drops] 1 drop OS QID #10 ml Referrals: ELENITA SHAY MD [Staff Physician] - 3-5 Days Time of Disposition: 10:39
== END 2021-10-29 11:42 | disposition home or self-care (01) ==
LOC: ED 08:19
DX: S05.02XA Injury of conjunctiva and corneal abrasion without foreign body, left eye, initial encounter (principal); I10 Essential (primary) hypertension; F10.10 Alcohol abuse, uncomplicated; Z79.899 Other long term (current) drug therapy; X58.XXXA Exposure to other specified factors, initial encounter; Y93.89 Activity, other specified; Y92.89 Other specified places as the place of occurrence of the external cause; Y99.8 Other external cause status; Y90.9 Presence of alcohol in blood, level not specified
CPT/HCPCS: 99283